=== PATIENT | male | born 1955 | race Caucasian/White ===

== ENCOUNTER 2021-03-17 13:47 | Emergency (ER) | payer MEDICARE, BC ==
[~2021-03-17] VITALS: Ht 165.1 cm; Wt 83.9 kg
[~2021-03-17 13:47] MED LIST: ALLER-TEC10 MG PO; LEVOTHYROXINE100 MCG PO; LIPITOR80 MG PO; LISINOPRIL10 MG PO; PROZAC20 MG PO
[2021-03-17] MEDS ORDERED: FLONASE ALLERG9.9 ML (14:16)
[2021-03-17] MEDS ORDERED: NAPROSYN500 MG PO (16:11)
== END 2021-03-17 16:56 | disposition home or self-care (01) ==
LOC: ED 13:47
DX: M66.0 Rupture of popliteal cyst (principal); E78.5 Hyperlipidemia, unspecified; I10 Essential (primary) hypertension; M79.605 Pain in left leg; E03.9 Hypothyroidism, unspecified; Z87.891 Personal history of nicotine dependence; Z79.899 Other long term (current) drug therapy
CPT/HCPCS: 93971; 99283-25

== ENCOUNTER 2022-04-15 19:04 | Emergency (ER) | payer MEDICARE, BC ==
[~2022-04-15] VITALS: Ht 165.1 cm; Wt 79.4 kg
[~2022-04-15 19:04] MED LIST changes: +ACETAMINOPHEN500 M1 PO; +ACETAMINOPHEN500 MG PO; +FLONASE ALLERG9.9 ML; +HYDROCODON-ACE1 EA10 PO; +INDOMETHACIN25 MG PO; +NAPROSYN500 MG PO
[2022-04-15] MEDS ORDERED: LISINOPRIL20 MG PO (19:24)
== END 2022-04-15 20:41 | disposition home or self-care (01) ==
LOC: ED 19:04
DX: S61.512A Laceration without foreign body of left wrist, initial encounter (principal); W22.8XXA Striking against or struck by other objects, initial encounter; Z23 Encounter for immunization; E78.5 Hyperlipidemia, unspecified; I10 Essential (primary) hypertension; E03.9 Hypothyroidism, unspecified; Z87.891 Personal history of nicotine dependence; Z79.899 Other long term (current) drug therapy
CPT/HCPCS: 12002; 73630; 90471; 90715; 99283-25

== ENCOUNTER 2024-03-13 11:57 | Emergency (ER) | payer MEDICARE, BC ==
[~2024-03-13] VITALS: Ht 165.1 cm; Wt 81.3 kg
[~2024-03-13 11:57] MED LIST changes: +CYCLOBENZAPRINE10 MG PO; +LISINOPRIL20 MG PO; +NEURONTIN100 MG; +TAMSULOSIN HCL0.4 MG; +WELLBUTRIN XL150 MG
--- OUTSIDE RECORDS SUMMARY | 2024-03-13 12:01 | XMS ---
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 Reji VISIT COUNT (12 MO.) 2 [facility] TOTAL 2 NOTE: Visits indicate total known visits. ED/UCC VISIT TRACKING (12 MO.) 03/13/2024 11:58 [facility] [place] TYPE: Emergency COMPLAINT: - HIGH BLOOD PRESSURE 02/26/2024 19:56 [facility] [place] TYPE: Emergency COMPLAINT: - LUMP BEHIND EAR DIAGNOSES: - Essential (primary) hypertension - Hyperlipidemia, unspecified - Hypothyroidism, unspecified - Otalgia, left ear - Other senior living (current) drug therapy - Personal history of nicotine dependence INPATIENT VISIT TRACKING (12 MO.) No inpatient visits to display in this time frame [email or web address]
[2024-03-13 13:59] VITALS: BP 169/76
== END 2024-03-13 14:00 | disposition home or self-care (01) ==
LOC: ED 11:57
DX: I10 Essential (primary) hypertension (principal); E03.9 Hypothyroidism, unspecified; E78.5 Hyperlipidemia, unspecified; Z79.51 Long term (current) use of inhaled steroids; Z79.899 Other long term (current) drug therapy; Z87.891 Personal history of nicotine dependence
CPT/HCPCS: 70450; 99283-25

== ENCOUNTER 2024-08-16 00:03 | Emergency (ER) | payer MEDICARE, BC ==
[~2024-08-16] VITALS: Ht 165.1 cm; Wt 82.4 kg
[2024-08-16] MEDS ORDERED: BACLOFEN10 MG (00:18)
[2024-08-16 01:08] LABS: ALBUMIN 3.6 g/dL (3.4-5.0); ALBUMIN/GLOBULIN RATIO 1.2 (1.1-2.4); ANION GAP 11.9 (7-21); BILIRUBIN, TOTAL 0.3 ng/dL (0.2-1.0); BUN/CREATININE RATIO 14.28 (6.0-28.6); CALCIUM 8.7 mg/dL (8.5-10.1); CREATININE, SERUM 0.91 mg/dL (0.70-1.30); POTASSIUM 3.9 mmol/L (3.5-5.1); PROTEIN, TOTAL 6.6 g/dL (6.4-8.2)
[2024-08-16 01:26] LABS: BASOPHILS 0.8 % (0-2); EOSINOPHILS 2.7 % (0-6); HEMATOCRIT 43.8 % (35.0-50.0); HEMOGLOBIN 15.1 g/dL (12.0-18.0); LYMPHOCYTES 29.3 % (24-44); MCH 31.9 (27-36); MCHC 34.6 g/dl (30-36); MONOCYTES 9.7 % (0-12); NEUTROPHILS 57.5 % (39-80); PLATELET COUNT 193 K/uL (140-440); RBC 4.76 M/ul (4.3-5.7); RDW 13.8 (10.5-15.0)
[2024-08-16 02:11] VITALS: BP 146/72
== END 2024-08-16 02:14 | disposition home or self-care (01) ==
LOC: ED 00:03
PROVIDERS: Emergency Medicine
DX: I10 Essential (primary) hypertension (principal); E03.9 Hypothyroidism, unspecified; R51.9 Headache, unspecified; E78.5 Hyperlipidemia, unspecified; Z87.891 Personal history of nicotine dependence; Z79.899 Other long term (current) drug therapy; Z79.890 Hormone replacement therapy
CPT/HCPCS: 36415; 70450; 80048; 80053; 85025; 99284-25